=== PATIENT | male | born 1935 | race Caucasian/White ===

== ENCOUNTER 2020-06-29 18:57 | Emergency (ER) | payer MEDICARE ==
[~2020-06-29] VITALS: Ht 165.1 cm; Wt 90.7 kg
[~2020-06-29 18:57] MED LIST: ASPI325 PO; CLOP75 PO; GABA400 PO; HYDACE5 PO; LISI20 PO; METOPROLOL; SIMV80 PO
[2020-06-29] MEDS ORDERED: HYDR1TAB94 PO (21:54)
[2020-07-11] MEDS ORDERED: GABA400 PO (08:40)
[2020-07-11] MEDS ORDERED: ALLO100 PO (08:42)
[2020-07-11] MEDS ORDERED: Aspir 8181 MG PO (08:43)
[2020-07-11] MEDS ORDERED: CLOP75 PO (08:44)
[2020-07-11] MEDS ORDERED: CITA20 PO (08:44)
[2020-07-11] MEDS ORDERED: VITAMIN B125000 MC1 PO (08:45)
[2020-07-11] MEDS ORDERED: HYDCHL12.5 PO (08:46)
[2020-07-11] MEDS ORDERED: LISI20 PO (08:47)
[2020-07-11] MEDS ORDERED: ISOSORBIDE MONO30 MG PO (08:47)
[2020-07-11] MEDS ORDERED: ZOCOR20 MG PO (08:48)
[2020-07-11] MEDS ORDERED: METO25 PO (08:48)
== END 2020-06-29 22:09 | disposition home or self-care (01) ==
LOC: ER 18:57
DX: S39.012A Strain of muscle, fascia and tendon of lower back, initial encounter (principal); I25.10 Atherosclerotic heart disease of native coronary artery without angina pectoris; Z79.82 Long term (current) use of aspirin; Z79.899 Other long term (current) drug therapy; Z79.02 Long term (current) use of antithrombotics/antiplatelets; Z95.5 Presence of coronary angioplasty implant and graft; W19.XXXA Unspecified fall, initial encounter
CPT/HCPCS: 73502; 99283-25; A9270

== ENCOUNTER 2020-07-18 14:17 | Emergency (ER) | payer MEDICARE ==
[~2020-07-18] VITALS: Ht 170.2 cm; Wt 90.7 kg
[~2020-07-18 14:17] MED LIST changes: +ALLO100 PO; +Aspir 8181 MG PO; +CITA20 PO; +HYDCHL12.5 PO; +HYDR1TAB94 PO; +ISOSORBIDE MONO30 MG PO; +METO25 PO; +VITAMIN B125000 MC1 PO; +ZOCOR20 MG PO
[2020-07-18 14:50] LABS: BASOPHILS ABSOLUTE AUTO 0.07 K/mm3 (0.00-0.23); BASOPHILS PERCENT AUTO 1 % (0-2); EOSINOPHILS ABSOLUTE AUTO 0.26 K/mm3 (0.00-0.68); EOSINOPHILS PERCENT AUTO 3 % (0-6); Hematocrit 40.7 % (37.0-53.0); Hemoglobin 13.1 g/dL (13.5-17.5); IMMATURE GRAN ABSOLUTE AUTO 0.03 K/mm3 (0.00-0.10); IMMATURE GRAN PERCENT AUTO 0 % (0-1); LYMPHOCYTES ABSOLUTE AUTO 0.67 K/mm3 (0.84-5.20); LYMPHOCYTES PERCENT AUTO 9 % (21-46); MONOCYTES ABSOLUTE AUTO 1.02 K/mm3 (0.16-1.47); MONOCYTES PERCENT AUTO 13 % (4-13); Mean Corpuscular HGB 29.4 pg (26.0-34.0); Mean Corpuscular HGB Conc 32.2 g/dL (31.5-36.5); Mean Corpuscular Volume 92 fL (80-100); NEUTROPHILS ABSOLUTE AUTO 5.82 K/mm3 (1.96-9.15); NEUTROPHILS PERCENT AUTO 74 % (41-73); Platelet Count 299 K/mm3 (150-400); RDW Coefficient Variation 12.6 % (11.7-14.2); RDW Standard Deviation 42.5 fL (35.1-46.3); Red Blood Cell Count 4.45 M/mm3 (4.30-5.90); White Blood Cell Count 7.87 K/mm3 (4.00-11.30)
[2020-07-18 15:43] LABS: Alanine Aminotransfer (ALT/SGP 31 U/L (12-78); Albumin, Blood 3.2 g/dL (3.4-5.0); Albumin/Globulin Ratio 0.9 (0.8-1.8); Alk Phos 163 U/L (50-136); Anion Gap 6 mmol/L (6-16); Aspartate Aminotrans (AST/SGOT 21 U/L (12-37); Bilirubin, Total 0.7 mg/dL (0.1-1.0); Blood Urea Nitrogen 26 mg/dL (8-24); Bun/Creatinine Ratio 13.2 (12.0-20.0); CO2, Blood 28 mmol/L (21-32); Calcium, Blood 9.1 mg/dL (8.5-10.1); Chloride, Blood 103 mmol/L (98-108); Creatinine, Blood 1.97 mg/dL (0.60-1.20); Globulin, Blood 3.4 g/dL (2.2-4.0); Glomerular Filtration Rate 35 (60-); Glucose, Blood 119 mg/dL (70-99); Potassium, Blood 4.8 mmol/L (3.5-5.5); Sodium, Blood 137 mmol/L (136-145); Total Protein, Blood 6.6 g/dL (6.4-8.2); Troponin I <0.015 ng/mL (0.000-0.040)
[2020-07-18] MEDS ORDERED: TAMSULOSIN HCL0.4 M1 PO (15:47)
== END 2020-07-18 18:20 | disposition home or self-care (01) ==
LOC: ER 14:17
PROVIDERS: Emergency Medicine
DX: I95.9 Hypotension, unspecified (principal); E86.0 Dehydration; I25.10 Atherosclerotic heart disease of native coronary artery without angina pectoris; Z79.02 Long term (current) use of antithrombotics/antiplatelets; Z79.899 Other long term (current) drug therapy; Z79.82 Long term (current) use of aspirin; Z95.5 Presence of coronary angioplasty implant and graft; Z87.891 Personal history of nicotine dependence
CPT/HCPCS: 36415; 71045; 80053; 84484; 85025; 93005; 93010; 96360; 99284-25; J7030

== ENCOUNTER 2021-03-24 05:59 | Inpatient (IN) | payer MEDICARE ==
[~2021-03-24] VITALS: Ht 165.1 cm; Wt 91.4 kg
[~2021-03-24 05:59] MED LIST changes: +ALKA-SELTZER P1 EA19 PO; +TAMSULOSIN HCL0.4 M1 PO; +VITAMIN D3 PO
--- NOTE | 2021-03-24 06:20 | NUR ---
Ambulatory in Day Surgery. History, Chart, Medications and Allergies reviewed before start of procedure. Lungs clear T/O to Auscultation. Patient confirms NPO status and agrees with scheduled surgery. Pre-Op teaching done. Pt verbalizes understanding.
--- NOTE | 2021-03-24 10:26 | NUR ---
03/24/21 1026 Gege Alexander WHEN PATIENT ARRIVED TO OR, AFTER INTUBATION, TEAM NOTICED SIGNIFICANT SWELLING, CONSTRICTION, REDNESS, AND PEELING OF THE SKIN OF PENIS AND FORESKIN. NOTIFIED.
--- NOTE | 2021-03-24 18:20 | NUR ---
SHIFT SUMMARY PT WAS VERY DROWSY POST OP. ARRIVED AROUND 1400, HAS SLEPT TIL 1800 (BUT DID AWAKE EASILY TO NAME IN BETWEEN & VSS). WOKE UP, ALERT & ORIENTED. DENIES PAIN TO R SHOULDER, STILL ABLE TO WIGGLE FINGERS. ABLE TO USE L ARM WELL BUT REPORTS IT IS WEAKER & PT REPORTS DROPPING THINGS MORE OFTEN w/ LEFT HAND. ABLE TO FEED SELF FOR DINNER.
--- NOTE | 2021-03-25 04:02 | NUR ---
SHIFT SUMMARY POD1 R TOTAL SHOULDER ARTHROPLASTY REVERSAL, AQUACEL C/D/I. IMMOBILIZER IN PLACE. AMBULATING TO THE BATHROOM WITH ONE ASSIST. VOIDING WELL. TOLERATING PO INTAKE. PAIN BEING CONTROLLED PER EMAR. WILL REPORT TO ONCOMING RN.
[2021-03-25 04:27] LABS: BASOPHILS ABSOLUTE AUTO 0.01 K/mm3 (0.00-0.23); BASOPHILS PERCENT AUTO 0 % (0-2); EOSINOPHILS ABSOLUTE AUTO 0.01 K/mm3 (0.00-0.68); EOSINOPHILS PERCENT AUTO 0 % (0-6); Hematocrit 34.7 % (37.0-53.0); Hemoglobin 11.1 g/dL (13.5-17.5); IMMATURE GRAN ABSOLUTE AUTO 0.03 K/mm3 (0.00-0.10); IMMATURE GRAN PERCENT AUTO 0 % (0-1); LYMPHOCYTES ABSOLUTE AUTO 0.41 K/mm3 (0.84-5.20); LYMPHOCYTES PERCENT AUTO 4 % (21-46); MONOCYTES ABSOLUTE AUTO 1.24 K/mm3 (0.16-1.47); MONOCYTES PERCENT AUTO 13 % (4-13); Mean Corpuscular HGB 30.2 pg (26.0-34.0); Mean Corpuscular Volume 94 fL (80-100); Mean Platelet Volume 10.6 fL (9.1-12.4); NEUTROPHILS ABSOLUTE AUTO 8.09 K/mm3 (1.96-9.15); NEUTROPHILS PERCENT AUTO 83 % (41-73); Platelet Count 163 K/mm3 (150-400); RDW Standard Deviation 45.1 fL (35.1-46.3); Red Blood Cell Count 3.68 M/mm3 (4.30-5.90); White Blood Cell Count 9.79 K/mm3 (4.00-11.30)
[2021-03-25 05:28] LABS: Bun/Creatinine Ratio 16.7 (12.0-20.0); Calcium, Blood 8.4 mg/dL (8.5-10.1); Creatinine, Blood 1.26 mg/dL (0.60-1.20); Magnesium, Blood 1.7 mg/dL (1.6-2.4)
[2021-03-25] MEDS ORDERED: ACET500 PO (11:12)
[2021-03-25] MEDS ORDERED: OXYC5 PO (11:13)
--- NOTE | 2021-03-25 15:35 | NUR ---
DISCHARGE PT CLEARED PT BUT NOT OT. DISCUSSED THIS w/ CARE MANAGEMENT & MD. STILL OK FOR DC. STRESSED IMPORTANCE OF NOT REMOVING IMMOBILIZER & FALL PRECAUTIONS. ARRANGED FOR NEIGHBOR TO CHECK ON HIM LATER TODAY & TOMORROW. HOME HEALTH ARRANGED TO SEE HIM WEDNESDAY MORNING. SCRIPT, JENNIFER SENT w/ PT. ESCORTED OUT VIA W/C.
== END 2021-03-25 15:28 | disposition home or self-care (01) | DRG 483 ==
LOC: SURS 05:59 → PRE IP 07:30 → SURS 14:30
PROVIDERS: ADMIT Orthopaedic Surgery
PROC: 0RWJXJZ Revision of Synthetic Substitute in Right Shoulder Joint, External Approach (ICD-10-PCS; 2021-03-24)
PROC: 0RRJ00Z Replacement of Right Shoulder Joint with Reverse Ball and Socket Synthetic Substitute, Open Approach (ICD-10-PCS; principal; 2021-03-24 07:30)
DX: M19.011 Primary osteoarthritis, right shoulder (principal); T84.028A Dislocation of other internal joint prosthesis, initial encounter; K59.09 Other constipation; N18.30 Chronic kidney disease, stage 3 unspecified; I25.10 Atherosclerotic heart disease of native coronary artery without angina pectoris; I25.83 Coronary atherosclerosis due to lipid rich plaque; Z96.659 Presence of unspecified artificial knee joint; Z20.822 Contact with and (suspected) exposure to COVID-19; E66.9 Obesity, unspecified; M10.9 Gout, unspecified; I12.9 Hypertensive chronic kidney disease with stage 1 through stage 4 chronic kidney disease, or unspecified chronic kidney disease; Z85.828 Personal history of other malignant neoplasm of skin; Z95.5 Presence of coronary angioplasty implant and graft; Z90.49 Acquired absence of other specified parts of digestive tract; Z98.890 Other specified postprocedural states; Z87.891 Personal history of nicotine dependence; Z79.82 Long term (current) use of aspirin; Z79.899 Other long term (current) drug therapy; Y83.1 Surgical operation with implant of artificial internal device as the cause of abnormal reaction of the patient, or of later complication, without mention of misadventure at the time of the procedure; I25.2 Old myocardial infarction; Z68.33 Body mass index [BMI] 33.0-33.9, adult; Z86.73 Personal history of transient ischemic attack (TIA), and cerebral infarction without residual deficits; Z28.21 Immunization not carried out because of patient refusal
CPT/HCPCS: 36415; 73020; 73030; 80048; 83735; 85025; 97110; 97161; 97165; 97530; 97535; A9270; C1776; J0171; J0690; J0735; J1100; J1885; J2250; J2310; J2370; J2405; J2704; J2795; J3010; J7120

== ENCOUNTER 2021-04-29 16:07 | Emergency (ER) | payer MEDICARE ==
[~2021-04-29] VITALS: Ht 165.1 cm; Wt 85.7 kg
[~2021-04-29 16:07] MED LIST changes: +ACET500 PO; +OXYC5 PO
== END 2021-04-29 18:05 | disposition home or self-care (01) ==
LOC: ER 16:07
DX: R55 Syncope and collapse (principal); I12.9 Hypertensive chronic kidney disease with stage 1 through stage 4 chronic kidney disease, or unspecified chronic kidney disease; N18.9 Chronic kidney disease, unspecified; Z87.891 Personal history of nicotine dependence
CPT/HCPCS: 93005; 93010; 99284-25

== ENCOUNTER 2021-05-02 11:38 | Day surgery (SDC) | payer MEDICARE ==
[~2021-05-02] VITALS: Ht 165.1 cm; Wt 83.8 kg
--- NOTE | 2021-05-02 12:36 | NUR ---
05/02/21 1236 Juliette Flores PATIENT HAS SHOULDER IMMOBILIZER ON RIGHT ARM DUE TO RECENT SHOULDER REPLACEMENT SURGERY. DR GARSIA AND DR HUMPHRIES AWARE AND THIS WILL STAY IN PLACE FOR PROCEDURE
== END 2021-05-02 13:50 | disposition home or self-care (01) ==
LOC: ORSCSDS 11:38
PROVIDERS: Internal Medicine Gastroenterology
PROC: 0DBK8ZX Excision of Ascending Colon, Via Natural or Artificial Opening Endoscopic, Diagnostic (ICD-10-PCS; principal; 2021-05-02 13:15)
PROC: 0DBL8ZX Excision of Transverse Colon, Via Natural or Artificial Opening Endoscopic, Diagnostic (ICD-10-PCS; principal; 2021-05-02 13:15)
DX: K59.00 Constipation, unspecified (principal); Z86.010 Personal history of colon polyps; Z80.0 Family history of malignant neoplasm of digestive organs; D12.2 Benign neoplasm of ascending colon; D12.3 Benign neoplasm of transverse colon; Z86.73 Personal history of transient ischemic attack (TIA), and cerebral infarction without residual deficits; K64.4 Residual hemorrhoidal skin tags; Z79.82 Long term (current) use of aspirin; Z79.899 Other long term (current) drug therapy
CPT/HCPCS: 88305; J2370; J2405; J2704; J7120

== ENCOUNTER → 2021-12-23 | Outpatient (CLI) | payer MEDICARE ==
[~2021-12-23] MED LIST changes: +AMLO5 PO; +FISH OIL 1,2001 EAC7 PO; +HYDCHL25 PO; +LOPERAMIDE PO; +LOSA25 PO
[2021-12-23 15:53] LABS: BASOPHILS ABSOLUTE AUTO 0.04 K/mm3 (0.00-0.23); BASOPHILS PERCENT AUTO 1 % (0-2); EOSINOPHILS ABSOLUTE AUTO 0.26 K/mm3 (0.00-0.68); EOSINOPHILS PERCENT AUTO 4 % (0-6); Hematocrit 40.5 % (37.0-53.0); IMMATURE GRAN ABSOLUTE AUTO 0.01 K/mm3 (0.00-0.10); IMMATURE GRAN PERCENT AUTO 0 % (0-1); LYMPHOCYTES ABSOLUTE AUTO 0.71 K/mm3 (0.84-5.20); LYMPHOCYTES PERCENT AUTO 11 % (21-46); MONOCYTES ABSOLUTE AUTO 0.92 K/mm3 (0.16-1.47); MONOCYTES PERCENT AUTO 14 % (4-13); Mean Corpuscular HGB 29.5 pg (26.0-34.0); Mean Corpuscular HGB Conc 32.1 g/dL (31.5-36.5); Mean Corpuscular Volume 92 fL (80-100); Mean Platelet Volume 10.4 fL (9.1-12.4); NEUTROPHILS ABSOLUTE AUTO 4.67 K/mm3 (1.96-9.15); NEUTROPHILS PERCENT AUTO 71 % (41-73); Platelet Count 197 K/mm3 (150-400); RDW Coefficient Variation 13.2 % (11.7-14.2); RDW Standard Deviation 44.4 fL (35.1-46.3); White Blood Cell Count 6.61 K/mm3 (4.00-11.30)
[2021-12-23 16:06] LABS: Calcium, Blood 8.8 mg/dL (8.5-10.1); Creatinine, Blood 1.06 mg/dL (0.60-1.20); Potassium, Blood 4.1 mmol/L (3.5-5.5)
== END | disposition home or self-care (01) ==
LOC: LAB 15:27 → LAB SHORT 15:27
PROVIDERS: Orthopaedic Surgery
DX: Z01.812 Encounter for preprocedural laboratory examination (principal); M17.11 Unilateral primary osteoarthritis, right knee
CPT/HCPCS: 80048; 85025

== ENCOUNTER 2022-03-09 05:39 | Day surgery (SDC) | payer MEDICARE ==
[2022-03-10] MEDS ORDERED: ASPIR 8181 M1 PO (11:01)
[2022-03-10] MEDS ORDERED: OXYC5 PO (12:24)
[2022-03-10] MEDS ORDERED: ACET500 PO (12:24)
== END 2022-03-10 13:03 | disposition home or self-care (01) ==
DX: M17.11 Unilateral primary osteoarthritis, right knee (principal); I12.9 Hypertensive chronic kidney disease with stage 1 through stage 4 chronic kidney disease, or unspecified chronic kidney disease; N18.9 Chronic kidney disease, unspecified; J45.909 Unspecified asthma, uncomplicated; I25.2 Old myocardial infarction; I25.10 Atherosclerotic heart disease of native coronary artery without angina pectoris; Z79.899 Other long term (current) drug therapy

== ENCOUNTER 2023-08-09 18:29 | Emergency (ER) | payer MEDICARE ==
[~2023-08-09] VITALS: Ht 167.6 cm; Wt 70.3 kg
[~2023-08-09 18:29] MED LIST changes: +ASPIR 8181 M1 PO
[2023-08-09 19:34] LABS: BASOPHILS ABSOLUTE AUTO 0.05 K/mm3 (0.00-0.23); BASOPHILS PERCENT AUTO 1 % (0-2); EOSINOPHILS ABSOLUTE AUTO 0.27 K/mm3 (0.00-0.68); EOSINOPHILS PERCENT AUTO 3 % (0-6); Hemoglobin 12.4 g/dL (13.5-17.5); IMMATURE GRAN ABSOLUTE AUTO 0.04 K/mm3 (0.00-0.10); IMMATURE GRAN PERCENT AUTO 0 % (0-1); LYMPHOCYTES ABSOLUTE AUTO 0.62 K/mm3 (0.84-5.20); LYMPHOCYTES PERCENT AUTO 6 % (21-46); MONOCYTES ABSOLUTE AUTO 1.41 K/mm3 (0.16-1.47); MONOCYTES PERCENT AUTO 14 % (4-13); Mean Corpuscular HGB Conc 32.6 g/dL (31.5-36.5); Mean Corpuscular Volume 92 fL (80-100); Mean Platelet Volume 10.3 fL (9.1-12.4); NEUTROPHILS PERCENT AUTO 77 % (41-73); Platelet Count 211 K/mm3 (150-400); RDW Coefficient Variation 13.1 % (11.7-14.2); RDW Standard Deviation 44.2 fL (35.1-46.3); Red Blood Cell Count 4.14 M/mm3 (4.30-5.90); White Blood Cell Count 10.39 K/mm3 (4.00-11.30)
[2023-08-09 19:42] LABS: Albumin, Blood 3.1 g/dL (3.4-5.0); Bilirubin, Total 0.4 mg/dL (0.1-1.0); Bun/Creatinine Ratio 12.4 (12.0-20.0); Calcium, Blood 8.4 mg/dL (8.5-10.1); Creatinine, Blood 1.45 mg/dL (0.60-1.20); Globulin, Blood 3.2 g/dL (2.2-4.0); Potassium, Blood 4.5 mmol/L (3.5-5.5); Total Protein, Blood 6.3 g/dL (6.4-8.2)
[2023-08-09] MEDS ORDERED: NS 1,000 ML IV SCH (19:45)
[2023-08-09 19:59] LABS: PCO2 Venous 44.9 mmHg (38-42)
[2023-08-09 20:00] LABS: Base Excess Venous 3.1 mmol/L; Bicarbonate Venous 26.7 mmol/L (24.0-30.0)
[2023-08-09 20:31] LABS: Influenza A, PCR NEGATIVE (NEGATIVE); Influenza B, PCR NEGATIVE (NEGATIVE); Resp Syncytial Virus, PCR NEGATIVE (NEGATIVE); SARS-Cov-2 (COVID-19) PCR, MMC NEGATIVE (NEGATIVE)
[2023-08-09 21:24] LABS: Source, Urine Clean Catch
[2023-08-09 21:26] LABS: Bilirubin, Urine Neg (Neg); Blood, Urine 2+ (Neg); Color, Urine Yellow (P-Yellow); Glucose Qualitative, Urine Neg (Neg); Ketones, Urine Neg (Neg); Leukocyte Esterase, Urine 1+ (Neg); Nitrite, Urine Neg (Neg); Protein, Urine 2+ (Neg); Specific Gravity, Urine 1.015 (1.003-1.022); Urobilinogen, Urine 1+ (Normal)
[2023-08-09 21:37] LABS: Appearance, Urine Clear (Clear)
[2023-08-09 21:38] LABS: Amorphous Light (0-Heavy); Bacteria Rare /hpf; Mucus Light (0-Heavy); Squamous Epithelial Cells Rare /hpf (Few); White Blood Cells, Urine 0-2 /hpf (0-5)
[2023-08-09 22:00] VITALS: BP 135/64
== END 2023-08-09 23:30 | disposition home or self-care (01) ==
LOC: ER 18:29
PROVIDERS: Student in an Organized Health Care Education/Training Program
DX: R55 Syncope and collapse (principal); Z72.820 Sleep deprivation; I25.10 Atherosclerotic heart disease of native coronary artery without angina pectoris; I12.9 Hypertensive chronic kidney disease with stage 1 through stage 4 chronic kidney disease, or unspecified chronic kidney disease; N18.9 Chronic kidney disease, unspecified; M10.9 Gout, unspecified; Z79.02 Long term (current) use of antithrombotics/antiplatelets; Z79.899 Other long term (current) drug therapy; Z79.82 Long term (current) use of aspirin; Z87.891 Personal history of nicotine dependence
CPT/HCPCS: 0241U; 71046; 80053; 81001; 82803; 83690; 84484; 85025; 93005; 93010; 96360; 99285-25; J7030

== ENCOUNTER 2024-05-01 19:29 | Emergency (ER) | payer MEDICARE ==
[~2024-05-01] VITALS: Ht 162.6 cm; Wt 79.4 kg
[2024-05-01 19:54] LABS: BASOPHILS ABSOLUTE AUTO 0.03 K/mm3 (0.00-0.23); BASOPHILS PERCENT AUTO 0 % (0-2); EOSINOPHILS ABSOLUTE AUTO 0.08 K/mm3 (0.00-0.68); EOSINOPHILS PERCENT AUTO 1 % (0-6); Hematocrit 37.9 % (37.0-53.0); Hemoglobin 12.2 g/dL (13.5-17.5); IMMATURE GRAN ABSOLUTE AUTO 0.06 K/mm3 (0.00-0.10); IMMATURE GRAN PERCENT AUTO 1 % (0-1); LYMPHOCYTES ABSOLUTE AUTO 0.37 K/mm3 (0.84-5.20); LYMPHOCYTES PERCENT AUTO 4 % (21-46); MONOCYTES ABSOLUTE AUTO 1.01 K/mm3 (0.16-1.47); MONOCYTES PERCENT AUTO 11 % (4-13); Mean Corpuscular HGB 29.5 pg (26.0-34.0); Mean Corpuscular HGB Conc 32.2 g/dL (31.5-36.5); Mean Corpuscular Volume 92 fL (80-100); Mean Platelet Volume 9.8 fL (9.1-12.4); NEUTROPHILS ABSOLUTE AUTO 7.78 K/mm3 (1.96-9.15); NEUTROPHILS PERCENT AUTO 83 % (41-73); Platelet Count 238 K/mm3 (150-400); RDW Coefficient Variation 13.2 % (11.7-14.2); RDW Standard Deviation 43.9 fL (35.1-46.3); Red Blood Cell Count 4.14 M/mm3 (4.30-5.90); White Blood Cell Count 9.33 K/mm3 (4.00-11.30)
[2024-05-01 20:03] LABS: Albumin, Blood 2.6 g/dL (3.4-5.0); Albumin/Globulin Ratio 0.8 (0.8-1.8); Bilirubin, Total 0.3 mg/dL (0.1-1.0); Bun/Creatinine Ratio 16.7 (12.0-20.0); Calcium, Blood 8.2 mg/dL (8.5-10.1); Creatinine, Blood 1.14 mg/dL (0.60-1.20); Globulin, Blood 3.2 g/dL (2.2-4.0); Potassium, Blood 3.9 mmol/L (3.5-5.5); Total Protein, Blood 5.8 g/dL (6.4-8.2)
[2024-05-01 20:06] VITALS: BP 110/66
[2024-05-01 20:27] LABS: Magnesium, Blood 1.9 mg/dL (1.6-2.4)
[2024-05-01 21:37] LABS: Influenza A, PCR NEGATIVE (NEGATIVE); Influenza B, PCR NEGATIVE (NEGATIVE); Resp Syncytial Virus, PCR NEGATIVE (NEGATIVE); SARS-Cov-2 (COVID-19) PCR, MMC NEGATIVE (NEGATIVE)
== END 2024-05-01 23:06 | disposition home or self-care (01) ==
LOC: ER 19:29
PROVIDERS: Emergency Medicine
DX: I48.91 Unspecified atrial fibrillation (principal); R55 Syncope and collapse; E86.1 Hypovolemia; I25.10 Atherosclerotic heart disease of native coronary artery without angina pectoris; I12.9 Hypertensive chronic kidney disease with stage 1 through stage 4 chronic kidney disease, or unspecified chronic kidney disease; N18.9 Chronic kidney disease, unspecified; M10.9 Gout, unspecified; Z87.891 Personal history of nicotine dependence; Z79.01 Long term (current) use of anticoagulants; Z79.82 Long term (current) use of aspirin; Z79.899 Other long term (current) drug therapy
CPT/HCPCS: 0241U; 71045; 71250; 80053; 83735; 84484; 85025; 93005; 93010; 99285-25